=== PATIENT | female | born 1960 | race Two or more races ===

== ENCOUNTER 2020-12-01 09:11 | Outpatient (CLI) | payer OTHER | END 2020-12-01 15:00 | disposition home or self-care (01) | LOC: LAB 09:11 | PROVIDERS: ATTEND Internal Medicine Cardiovascular Disease | DX: I10 Essential (primary) hypertension (principal); E11.9 Type 2 diabetes mellitus without complications; E03.8 Other specified hypothyroidism; E78.2 Mixed hyperlipidemia; E55.9 Vitamin D deficiency, unspecified ==

== ENCOUNTER 2020-12-05 08:16 | Outpatient (CLI) | payer OTHER | END 2020-12-05 08:21 | disposition home or self-care (01) | LOC: NUCLEAR 08:16 | PROVIDERS: ATTEND Internal Medicine Cardiovascular Disease | DX: R01.1 Cardiac murmur, unspecified (principal); I50.1 Left ventricular failure, unspecified ==

== ENCOUNTER 2021-04-09 10:10 | Outpatient (CLI) | payer OTHER | END 2021-04-09 10:11 | disposition home or self-care (01) | LOC: NUCLEAR 10:10 | PROVIDERS: ATTEND Internal Medicine Cardiovascular Disease | DX: I87.2 Venous insufficiency (chronic) (peripheral) (principal) ==